=== PATIENT | female | born 1975 | race Caucasian/White ===

== ENCOUNTER 2018-10-22 16:28 | Emergency (ER) | payer OTHER, MEDICAID, SELFPAY ==
[2018-10-22 16:40] VITALS: BP 108/60; PULSE 88; RESP 20; TEMP 36.9; O2SAT 98
--- NOTE | 2018-10-22 17:19 | ED_ITS ---
HPI - Skin/Abscess/Foreign Bdy General Chief complaint: Skin/Abscess/Foreign Body Stated complaint: states hoffmann to hands, says from medications Time Seen by Provider: 10/22/18 16:58 Source: patient Mode of arrival: ambulatory Limitations: no limitations History of Present Illness HPI narrative: This is a 42-year-old female comes to the emergency department with complaint of hoffmann on both her hands and her nose. Patient states she was told was reaction or doxycycline. She has been taking doxycycline for about 20+ days. She had a 10 day round of antibiotics followed by another 10 day round of antibiotics for sinusitis. Patient states that she noticed a little bit of sensitivity to the sun within 5 or 6 days of 1st taking it has progressively worsened. She has been continuing to take the doxycycline. She started noticing some blistering on 1 of her hands and the skin sloughed off. She has not had any discharge. No foul odor. Redness has not continued spreading to additional areas. Patient has a little bit of redness of her nose. And she has had a little bit of redness on her scalp is along her part. She does not have any rash or skin changes elsewhere on her body. She has not had any changes to her mouth, oral mucosa or vaginal mucosa. Patient has not had any chest pain, no shortness of breath, no nausea or vomiting. No diarrhea. Patient does have allergies to-mycins, she states that she will start vomiting for about 24 hours when she takes them. She has continued to have some sun exposure while driving an outside. Her tetanus is last updated 2003. Related Data Previous Rx's Medication Instructions Recorded silver sulfadiazine [Silvadene] 1 applictn TOP BID #25 gram 10/22/18 tramadol [Ultram] 50 mg PO Q6H PRN #10 tab 10/22/18 Allergies Allergy/AdvReac Type Severity Reaction Status Date / Time No Known Drug Allergies Allergy Verified 10/22/18 16:43 Review of Systems Review of Systems ROS Unobtainable: All systems reviewed & are unremarkable except as noted in HPI and below Constitutional Denies chills and Denies fever(s) Cardiovascular Denies chest pain and Denies dyspnea Respiratory Denies cough and Denies dyspnea Gastrointestinal Gastrointestinal: Denies abdominal pain, Denies change in bowel habits, Denies diarrhea, Denies nausea and Denies vomiting Genitourinary Denies hematuria, Denies dysuria and Denies urinary urgency Musculoskeletal Denies joint swelling Integumentary/Breasts Reports as per HPI, Denies new lesions, Reports erythema and Reports rash [facility] Medical History (Updated 10/22/18 @ 17:30 by Katherine Bhardwaj DO) Hypertension (Chronic) Exam Narrative Exam Narrative: GEN: well nourished, well appearing female, alert and oriented x 3, patient appears to be in mild distress. HEENT: Atraumatic, pupils are equal round reactive to light, extraocular movements are intact, nares are clear. Lips are clear, no oral mucosal involvement. HEART: Regular rate and rhythm without murmur, clicks, rubs. No carotid bruits, pulses are equal in upper and lower extremities LUNGS:Lungs clear to auscultation, no wheezes, rales, crackles, chest moves symmetrically ABD:bowel sounds normal, soft, non-tender, no guarding, rebound, rigidity, no masses noted, no hepatosplenomegaly MSCL: full range of motion, normal gait NEURO:CN 2-12 intact, sensation normal. SKIN: Patient has erythema over nose consistent with a sunburn. No blistering. Patient has erythema on the dorsums of her hand and fingers bilaterally. It spares the palms. On her 2nd and 3rd fingers on her left hand there is some de roofed blisters, the longest is about 2 cm by 0.5 cm in length. There is no discharge, no drainage or foul odor. Patient has full range of motion of her fingers. She does not have any rashes or skin changes elsewhere. Initial Vital Signs Initial Vital Signs: Vital Signs Temperature 98.5 F 10/22/18 16:40 Pulse Rate 88 10/22/18 16:40 Respiratory Rate 20 10/22/18 16:40 Blood Pressure 108/60 10/22/18 16:40 Pulse Oximetry 98 10/22/18 16:40 Course Orders Ordered: Discontinued Medications Diphtheria/Tetanus/Acell Pertussis (Adacel) 0.5 ml IM .ONCE ONE Stop: 10/22/18 17:20 Last Admin: 10/22/18 17:23 Dose: 0.5 ml Vital Signs - 8 hr 10/22/18 16:40 Temperature 98.5 F Pulse Rate 88 Respiratory Rate 20 Blood Pressure 108/60 Pulse Oximetry 98 MDM - Skin/Abscess/Foreign Bdy MDM Narrative Medical decision making narrative: Patient appears to be having a sun s ensitivity reaction with doxycycline. The only areas affected are areas that would typically have sun exposure. The patient has had recurrent exposure and she is still taking the doxycycline. Patient does appear to have a little bit of second-degree burn on the dorsum of her 2nd finger 3rd finger. She does not have any circumferential involvement. There is no excessive swelling. The rest appears to be 1st degree involvement. Of her nose and dorsum of her finger and fingers. Patient and I discussed treating it like a burn with typical Burn Care. She was told to stop the doxycycline. Her tetanus was updated. Discussed signs and symptoms to watch for and reasons to return. I did ask her to follow-up this week to make sure that she is improving to return if she has worsening. Discharge Plan Departure Patient Disposition: Home Clinical Impression: Burn of finger of left hand, second degree Doxycycline adverse reaction Qualifiers: Encounter type: initial encounter Qualified Code(s): T36.4X5A - Adverse effect of tetracyclines, initial encounter Burn, hands, first degree Qualifiers: Encounter type: initial encounter Burn of hand location: multiple sites Discharge Date/Time: 10/22/18 17:31 Instructions: Hoffmann Activity Restrictions/Additional Instructions: Follow-up with your primary care this week. Call for an appointment on Tuesday. Stop your doxycycline. Take pain medication as prescribed, this medication can make you sleepy do not drive, perform has activities or make any major decisions while taking it. You may take to 1000 mg every 8 hours as needed for pain. You may take this with her pain medicine. Wound Care: Keep wound(s) clean and dry. Do not soak your hands. Wash daily with soap and water only. Do not use over the counter products (alcohol or peroxide)on the wounds unless instructed by a physician. Apply silvadene cream two or three times daily to open skin until healed. If wound condition worsens (increased/expanding redness, developing fluid blisters, or worsening pain), either contact your doctor for an urgent re- assessment , or return to the Emergency Department. Return if fever greater than 100.4 Fahrenheit, increased swelling, increasing pain or worsening symptoms such as increased discharge or spreading redness. Prescriptions: New silver sulfadiazine [Silvadene] 1 % cream 1 applictn TOP BID Qty: 25 RF: 0 tramadol [Ultram] 50 mg tablet 50 mg PO Q6H PRN (Reason: pain) Qty: 10 RF: 0
[2018-10-22] MEDS: TET,DIPH,PERTUSS(ACELL),VAC/PF 0.5 ML SYRINGE IM (17:23)
== END 2018-10-22 17:31 | disposition home or self-care (01) ==
PROVIDERS: Emergency Provider Emergency Medicine
DX: T23.101A Burn of first degree of right hand, unspecified site, initial encounter (principal); T23.222A Burn of second degree of single left finger (nail) except thumb, initial encounter; T36.4X5A Adverse effect of tetracyclines, initial encounter
CPT/HCPCS: 90471; 99282; 99283; 90715